=== PATIENT | female | born 1955 | race Caucasian/White ===

== ENCOUNTER 2016-12-25 14:12 | Emergency (ER) | payer OTHER | END 2016-12-25 17:35 | disposition home or self-care (01) | LOC: ER1 14:12 | DX: S61.210A Laceration without foreign body of right index finger without damage to nail, initial encounter (principal); E11.9 Type 2 diabetes mellitus without complications; F17.200 Nicotine dependence, unspecified, uncomplicated; Z79.84 Long term (current) use of oral hypoglycemic drugs; Z79.02 Long term (current) use of antithrombotics/antiplatelets; W23.0XXA Caught, crushed, jammed, or pinched between moving objects, initial encounter | CPT/HCPCS: 12002; 73130; 90715; 96365; 96375; 96376; 99283; J0690; J2270; J2405; J7050 ==

== ENCOUNTER → 2020-09-20 | Outpatient (CLI) | payer MEDICARE, OTHER ==
[~2020-09-20] MED LIST: ALBUTEROL1.25 MG/3 INH; ALDACTONE 25MG25 MG PO; ASPIR-LOW81 MG PO; CLOPIDOGREL75 MG PO; CRESTOR 10 MG T10 MG PO; CYANOCOBAL1000 MCG/1 INJ; DOXYCYCLINE HY100 MG PO; DULOXETINE HCL60 MG PO; ENTRESTO 24 MG1 EACH PO; FLOMAX 0.4 MG0.4 MG PO; FLUZONE QU60 MCG/015 IM; FUROSEMIDE20 MG PO; GABAPENTIN800 MG PO; GLUCOPHAGE 500500 MG PO; IMDUR ER TAB 3030 MG PO; IPRAT-ALBUT 0.5-3 ML NEB; LASIX TAB 20 MG20 MG PO; LASIX20 MG PO; LOPRESSOR 25 MG25 MG PO; MELOXICAM15 MG PO; NICOTINE PATCH1 EAC2 TD; NITROGLYCERIN0.4 MG SL; PANTOPRAZOLE SO40 MG PO; PRAVASTATIN SOD40 MG PO; SPIRIVA HANDIH18 MCG INH; STIOLTO RESPIMAT4 GM INH; TESSALON PERLE100 MG PO; VENTOLIN HFA 66.7 GM INH; XANAX0.5 MG PO; ZOFRAN ODT 4 MG4 MG PO; ZOLPIDEM TARTRA10 MG PO
== END ==
LOC: CT 13:49
DX: R31.9 Hematuria, unspecified (principal); R10.9 Unspecified abdominal pain; R91.1 Solitary pulmonary nodule
CPT/HCPCS: 36415; 82565; Q9963; Q9967

== ENCOUNTER → 2020-10-03 | Outpatient (CLI) | payer MEDICARE, SELFPAY | LOC: HEART 5 14:42 | DX: J44.9 Chronic obstructive pulmonary disease, unspecified (principal); J30.9 Allergic rhinitis, unspecified; R10.9 Unspecified abdominal pain; R94.2 Abnormal results of pulmonary function studies; F17.210 Nicotine dependence, cigarettes, uncomplicated | CPT/HCPCS: 94060; 94729 ==

== ENCOUNTER 2020-10-24 08:35 | Outpatient (CLI) | payer MEDICARE, SELFPAY ==
[~2020-10-24] VITALS: Ht 165.1 cm; Wt 78.5 kg
[~2020-10-24 08:35] MED LIST changes: -ALBUTEROL1.25 MG/3 INH; -FLOMAX 0.4 MG0.4 MG PO; -IPRAT-ALBUT 0.5-3 ML NEB; -LASIX20 MG PO
[2020-10-24 09:44] LABS: RED BLOOD COUNT 4.82 M/UL (4.00-5.10); WHITE BLOOD COUNT 7.5 K/UL (4.5-11.0)
[2020-10-24 10:05] LABS: BUN/CREATININE RATIO 18 (0-10)
[2020-10-24] MEDS ORDERED: FLOMAX 0.4 MG0.4 MG PO (11:01)
[2020-10-24] MEDS ORDERED: LASIX20 MG PO (17:48)
[2020-10-24] MEDS ORDERED: ENTRESTO 24 MG1 EACH PO (17:50)
[2020-10-24] MEDS ORDERED: ALBUTEROL1.25 MG/3 INH (18:04)
== END 2020-10-25 11:18 | disposition home or self-care (01) ==
LOC: CT 08:35 → MED SURG 4 08:35 → CT 10:30 → MED SURG 4 17:33 → CT 10-25 11:18
PROVIDERS: Physician Assistant
PROC: 0BB63ZX Excision of Right Lower Lobe Bronchus, Percutaneous Approach, Diagnostic (ICD-10-PCS; principal; 2020-10-24)
PROC: 0W9930Z Drainage of Right Pleural Cavity with Drainage Device, Percutaneous Approach (ICD-10-PCS; principal; 2020-10-24)
DX: J95.811 Postprocedural pneumothorax (principal); R91.8 Other nonspecific abnormal finding of lung field; I25.10 Atherosclerotic heart disease of native coronary artery without angina pectoris; J44.9 Chronic obstructive pulmonary disease, unspecified; I42.0 Dilated cardiomyopathy; I50.22 Chronic systolic (congestive) heart failure; I11.0 Hypertensive heart disease with heart failure; M19.90 Unspecified osteoarthritis, unspecified site; K21.9 Gastro-esophageal reflux disease without esophagitis; E11.42 Type 2 diabetes mellitus with diabetic polyneuropathy; I48.91 Unspecified atrial fibrillation; E78.00 Pure hypercholesterolemia, unspecified; Z95.5 Presence of coronary angioplasty implant and graft; Z95.0 Presence of cardiac pacemaker; Z87.891 Personal history of nicotine dependence; Z79.82 Long term (current) use of aspirin; Z79.02 Long term (current) use of antithrombotics/antiplatelets; Z79.84 Long term (current) use of oral hypoglycemic drugs; Z79.899 Other long term (current) drug therapy; Z20.822 Contact with and (suspected) exposure to COVID-19; Y83.8 Other surgical procedures as the cause of abnormal reaction of the patient, or of later complication, without mention of misadventure at the time of the procedure
CPT/HCPCS: 36415; 71045; 71046; 80048; 80061; 80076; 82962; 83036; 84443; 85025; 85610; 85730; 88341; 88342; 94640; 94664; 94760; J3420

== ENCOUNTER → 2020-10-26 | Outpatient (CLI) | payer MEDICARE ==
[~2020-10-26] MED LIST changes: +ALBUTEROL1.25 MG/3 INH; +FLOMAX 0.4 MG0.4 MG PO; +IPRAT-ALBUT 0.5-3 ML NEB; +LASIX20 MG PO
== END ==
LOC: EXRD 13:40
DX: R91.1 Solitary pulmonary nodule (principal)
CPT/HCPCS: 71046

== ENCOUNTER 2020-10-27 07:04 | Observation (INO) | payer MEDICARE ==
[~2020-10-27] VITALS: Ht 165.1 cm; Wt 78.5 kg
[~2020-10-27 07:04] MED LIST changes: -IPRAT-ALBUT 0.5-3 ML NEB
[2020-10-28 03:03] LABS: HEMOGLOBIN 13.4 gm/dl (12.3-15.3); RED BLOOD COUNT 4.41 M/UL (4.00-5.10); WHITE BLOOD COUNT 6.4 K/UL (4.5-11.0)
[2020-10-28 03:19] LABS: BUN/CREATININE RATIO 24 (0-10)
[2020-10-30] MEDS ORDERED: IPRAT-ALBUT 0.5-3 ML NEB (09:27)
== END 2020-10-30 16:46 | disposition home or self-care (01) ==
LOC: CT 07:04 → PROG CARE 10:22 → CT 12:45 → PROG CARE 12:45
PROVIDERS: Family Medicine; ADMIT Internal Medicine Pulmonary Disease
PROC: 0W9900Z Drainage of Right Pleural Cavity with Drainage Device, Open Approach (ICD-10-PCS; principal; 2020-10-27)
PROC: 0BBF3ZX Excision of Right Lower Lung Lobe, Percutaneous Approach, Diagnostic (ICD-10-PCS; 2020-10-27)
DX: J95.811 Postprocedural pneumothorax (principal); C83.39 Diffuse large B-cell lymphoma, extranodal and solid organ sites; I42.0 Dilated cardiomyopathy; I25.10 Atherosclerotic heart disease of native coronary artery without angina pectoris; J43.9 Emphysema, unspecified; I13.0 Hypertensive heart and chronic kidney disease with heart failure and stage 1 through stage 4 chronic kidney disease, or unspecified chronic kidney disease; E11.22 Type 2 diabetes mellitus with diabetic chronic kidney disease; N18.9 Chronic kidney disease, unspecified; I50.22 Chronic systolic (congestive) heart failure; M19.90 Unspecified osteoarthritis, unspecified site; E11.42 Type 2 diabetes mellitus with diabetic polyneuropathy; Z20.822 Contact with and (suspected) exposure to COVID-19; Z95.810 Presence of automatic (implantable) cardiac defibrillator; Z95.5 Presence of coronary angioplasty implant and graft; Z86.73 Personal history of transient ischemic attack (TIA), and cerebral infarction without residual deficits; Z87.891 Personal history of nicotine dependence; Z79.82 Long term (current) use of aspirin; Z79.02 Long term (current) use of antithrombotics/antiplatelets; Z79.84 Long term (current) use of oral hypoglycemic drugs; Z79.899 Other long term (current) drug therapy; Y83.8 Other surgical procedures as the cause of abnormal reaction of the patient, or of later complication, without mention of misadventure at the time of the procedure
CPT/HCPCS: 36415; 71045; 71046; 80048; 82962; 85027; 87635; 88341; 88342; 88360; 94640; 94664; 94760; 96374; 96376; C1729; G0378; J1885

== ENCOUNTER → 2021-03-14 | Outpatient (CLI) | payer MEDICARE ==
[~2021-03-14] MED LIST changes: +IPRAT-ALBUT 0.5-3 ML NEB
== END ==
LOC: HEART 5 13:32
DX: Z01.89 Encounter for other specified special examinations (principal); C83.32 Diffuse large B-cell lymphoma, intrathoracic lymph nodes; F17.210 Nicotine dependence, cigarettes, uncomplicated; R94.2 Abnormal results of pulmonary function studies
CPT/HCPCS: 94060; 94729

== ENCOUNTER 2021-10-24 18:40 | Emergency (ER) | payer MEDICARE | END 2021-10-24 21:50 | disposition home or self-care (01) | LOC: ER1 18:40 | DX: S20.222A Contusion of left back wall of thorax, initial encounter (principal); F17.210 Nicotine dependence, cigarettes, uncomplicated; W19.XXXA Unspecified fall, initial encounter; Z95.0 Presence of cardiac pacemaker | CPT/HCPCS: 71111; 99283 ==